=== PATIENT | male | born 1995 | race Caucasian/White ===

== ENCOUNTER 2021-03-05 15:46 | Emergency (ER) | payer OTHER ==
[2021-03-05 16:43] VITALS: BP 143/69; PULSE 100; TEMP 98.6; BMI 28.2
== END 2021-03-05 18:15 | disposition home or self-care (01) ==
LOC: JERFT 15:46
DX: L03.114 Cellulitis of left upper limb (principal)
CPT/HCPCS: 71046-TC-FY; 73130-TC-LT-FY; 99284-25